=== PATIENT | female | born 1955 | race Caucasian/White ===

== ENCOUNTER 2016-07-23 23:38 | Emergency (ER) | payer BC, OTHER ==
--- NOTE | 2016-07-24 00:45 | CT REPORT ---
HISTORY: Fall to the posterior head. COMPARISON: None. TECHNIQUE: Axial non-contrast images obtained from skull vertex through foramen magnum. Dose reduction technique was utilized. FINDINGS: There is no atrophy. There is no hemorrhage. There is no hydrocephalus. There is a 1.6 cm extra-ax ial left frontal convexity partially calcified mass. Blackwell white differentiation adequate, there is n o infarction. No midline shift is identified. There is mild mucosal thickening of the ethmoid sinus with air-fluid level seen in the sphenoid sinus. IMPRESSION: 1. No acute intracranial abnormality. 2. 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 3. Air-fluid level in the sphenoid sinus, which may be secondary to acute sinusitis. Final Electronic Signature: This report was electronically signed by Bhargavi Lackey MD on 07/24/2016 12:42 AM. deborah /
--- NOTE | 2016-07-24 01:15 | ER PHYSICIAN DOCUMENTATION ---
Physician Documentation [facility] Name:Es Mahoney Age:61 yrs Sex:Female :1955 Arrival Date:07/23/2016 Time:23:38 Bed3 Private MD:Physician, No ED Nate Curry Disposition: 07/24/16 00:52 Discharged to Home/Self Care. Impression: Closed Head Injury w/o Cranial Wound, Unspec State LOC. - Condition is Good. - Discharge Instructions: Acute Brain Injuries - HEAD INJURY, No Wake-Up (Adult). - Medical Reconciliation form form. - Follow up: Emergency Department; When: As needed; Reason: Worsening of condition. - Problem is new. - Symptoms have improved. HPI: 07/24 00:48 This 61 yrs old Female presents to ER via Wheelchair with complaints of Head sc Injury-Adult. 00:48 The patient or guardian reports injury, pain. The complaints affect the left oriental orthodox. sc Context of injury: The problem was sustained at work, resulted from a fall. Onset: The symptom(s)/episode began/occurred 15 minute(s) ago. Associated signs and symptoms: Loss of consciousness: This patient did not experience any loss of consciousness. Pertinent positives: headache. Severity of symptoms: At their worst the symptoms were moderate, in the emergency department the symptoms are unchanged. Intracranial bleed risk factors: age over 60. Historical: - Allergies: No known drug Allergies; - Home Meds: 1. Proventil Inhl as needed - Tetanus: < 10 years. - Ebola Screening: : Patient negative for fever greater than or equal to 101.5 degrees Fahrenheit, and additional compatible Ebola Virus Disease symptoms. Patient denies exposure to infectious person. Patient denies travel to an Ebola-affected area in the 21 days before illness onset. No symptoms or risks identified at this time. . - Immunization history: Flu Vaccine < 1 year. - Social history: Smoking status: Patient uses tobacco products, current every day smoker. ROS: 00:49 Constitutional: Negative for fever, chills, and weight loss. sc Eyes: Negative for injury, pain, redness, and discharge. ENT: Negative for injury, pain, and discharge. Neck: Negative for injury, pain, and swelling. Cardiovascular: Negative for chest pain, palpitations, and edema. Respiratory: Negative for shortness of breath, cough, wheezing, and pleuritic chest pain. Back: Negative for injury and pain. 00:49 Skin: Negative for injury, rash, and discoloration. sc 00:49 Eyes: Negative for blurry vision. 00:49 ENT: Negative for injury or acute deformity, drainage from ear(s). 00:49 Neuro: Positive for headache. Exam: Constitutional: This is a well developed, well nourished patient who is awake, alert, and in no acute distress. Chest/axilla: Normal chest wall appearance and motion. Nontender with no deformity. No lesions are appreciated. Cardiovascular: Regular rate and rhythm with a normal S1 and S2. No gallops, murmurs, or rubs. Normal PMI, no JVD. No pulse deficits. Respiratory: Lungs have equal breath sounds bilaterally, clear to auscultation and percussion. No rales, rhonchi or wheezes noted. No increased work of breathing, no retractions or nasal flaring. Abdomen/GI: Soft, non-tender, with normal bowel sounds. No distension or tympany. No guarding or rebound. No evidence of tenderness throughout. Back: No spinal tenderness. No costovertebral tenderness. Full range of motion. 00:49 Skin: Warm, dry with normal turgor. Normal color with no rashes, no lesions, and no sc evidence of cellulitis. 00:49 Head/face: Exam is negative for glez signs, deformity, Noted is tenderness, Basilar skull fracture findings: the patient does not have obvious signs of a basilar skull fracture. 00:49 Eyes: Pupils: equal, round, and reactive to light and accomodation. 00:49 ENT: TM's: hemotympanum, is not appreciated. 00:49 Neck: C-spine: no acute changes. 00:52 Neuro: Orientation: is normal, Mentation: is normal. sc Vital Signs: 07/23 23:47 BP 147 / 89; Pulse 87; Resp 18; Temp 98.0; Pulse Ox 92% on R/A; Weight 72.57 kg (R); bw2 Height 5 ft. 5 in. (165.10 cm); Pain 6/10; 07/24 01:11 BP 136 / 66; Pulse 70; Resp 18; Pulse Ox 93% ; Pain 4/10; bw2 07/23 23:47 Body Mass Index 26.63 (72.57 kg, 165.10 cm) bw2 [place] Coma Score: 07/23 23:45 Eye Response: spontaneous(4). Verbal Response: oriented(5). Motor Response: obeys bw2 commands(6). Total: 15. 07/24 00:48 Eye Response: spontaneous(4). Verbal Response: oriented(5). Motor Response: obeys sc commands(6). Total: 15. 00:50 Eye Response: spontaneous(4). Verbal Response: oriented(5). Motor Response: obeys sc commands(6). Total: 15. Trauma Score (Adult): 07/23 23:48 Eye Response: spontaneous(1); Verbal Response: oriented(1); Motor Response: obeys bw2 commands(2); Systolic BP: > 89 mm Hg(4); Respiratory Rate: 10 to 29 per min(4); [place] Score: 15; Trauma Score: 12 MDM: 23:47 Patient medically screened. oh 07/24 00:50 Differential diagnosis: Intracranial bleed- Concussion cerebral contusion. Neurological sc re-evaluation: normal neurological exam including cranial nerves, orientation, mentation, motor and sensory exam, cerebellar testing, GCS normal, and normal gait. Data reviewed: vital signs, nurses notes, radiologic studies, CT scan, and as a result, I will discharge patient. Counseling: I had a detailed discussion with the patient and/or guardian regarding: the historical points, exam findings, and any diagnostic results supporting the discharge/admit diagnosis, radiology results, to return to the emergency department if symptoms worsen or persist or if there are any questions or concerns that arise at home. 07/24 00:46 Order name: CAT SCAN; HEAD W/O CON [id number]; Complete Time: 00:54 EDMS 07/24 00:53 Interpretation: Normal Except: meningioma, discussed with patient, aware and will sc confirm on follow up with pcp. Dispensed Medications: No medications were administered Signatures: Nate Jones MD MD [place] Zoila Gamahca [facility]
--- NOTE | 2016-07-24 01:15 | ER NURSING DOCUMENTATION ---
Nurse's Notes [facility] Name:Es Mahoney Age:61 yrs Sex:Female :1955 Arrival Date:07/23/2016 Time:23:38 Bed3 Private MD:Physician, No Diagnosis:Closed Head Injury w/o Cranial Wound, Unspec State LOC Presentation: 07/23 23:39 Acuity: ENMANUEL 3 bw2 23:45 Presenting complaint: Patient states: while walking at work she slipped on the wet bw2 floor and hit head on floor. pt denies LOC, pt denies being on blood thinners. pt complains of headache. Transition of care: patient was not received from another setting of care. Mechanism of Injury: The problem was sustained at work, resulted from a fall, slipped. 23:45 Method Of Arrival: Wheelchair bw2 Triage Assessment: 23:47 General: Appears in no apparent distress, well groomed, Behavior is appropriate for bw2 age. Pain: Complains of pain in head Quality of pain is described as throbbing, Pain began 30 min ago. Neuro: No deficits noted. Level of Consciousness is awake, alert, Reports headache in entire. Historical: - Allergies: No known drug Allergies; - Home Meds: 1. Proventil Inhl as needed - Tetanus: < 10 years. - Ebola Screening: : Patient negative for fever greater than or equal to 101.5 degrees Fahrenheit, and additional compatible Ebola Virus Disease symptoms. Patient denies exposure to infectious person. Patient denies travel to an Ebola-affected area in the 21 days before illness onset. No symptoms or risks identified at this time. . - Immunization history: Flu Vaccine < 1 year. - Social history: Smoking status: Patient uses tobacco products, current every day smoker. Screenin:48 Infectious Disease Risk None. Abuse screen: Denies threats or abuse. Nutritional bw2 screening: No deficits noted. Assessment: 23:48 See Triage Assessment done by same RN. bw2 Vital Signs: 23:47 BP 147 / 89; Pulse 87; Resp 18; Temp 98.0; Pulse Ox 92% on R/A; Weight 72.57 kg (R); bw2 Height 5 ft. 5 in. (165.10 cm); Pain 6/10; 07/24 01:11 BP 136 / 66; Pulse 70; Resp 18; Pulse Ox 93% ; Pain 4/10; bw2 07/23 23:47 Body Mass Index 26.63 (72.57 kg, 165.10 cm) bw2 [place] Coma Score: 07/23 23:45 Eye Response: spontaneous(4). Verbal Response: oriented(5). Motor Response: obeys bw2 commands(6). Total: 15. 18 00:48 Eye Response: spontaneous(4). Verbal Response: oriented(5). Motor Response: obeys sc commands(6). Total: 15. 00:50 Eye Response: spontaneous(4). Verbal Response: oriented(5). Motor Response: obeys sc commands(6). Total: 15. Trauma Score (Adult): 07/23 23:48 Eye Response: spontaneous(1); Verbal Response: oriented(1); Motor Response: obeys bw2 commands(2); Systolic BP: > 89 mm Hg(4); Respiratory Rate: 10 to 29 per min(4); [place] Score: 15; Trauma Score: 12 ED Course: 23:39 Patient arrived in ED. ma1 23:39 Physician, Aga is Private Physician. ma1 23:39 Laura Gama is Primary Nurse. bw2 23:39 Triage completed. 2 23:47 Nate Jones MD is Attending Physician. ga 23:48 Valuables Remains with patient Patient has correct armband on for positive bw2 identification. Bed in low position. Side rails up X2. 07/24 00:[address] pm1 00:[address] Patient [address] back from [address]. pm1 Administered Medications: No medications were administered Outcome: 00:52 Discharge ordered by . ga 01:11 Discharged to home ambulatory. bw2 01:11 Condition: good 01:11 Discharge Assessment: Patient awake, alert and oriented x 3. No cognitive and/or functional deficits noted. Patient verbalized understanding of disposition instructions. 01:11 Discharge instructions given to patient, Instructed on discharge instructions, follow up and referral plans. Demonstrated understanding of instructions. 01:14 Patient left the ED. 2 Signatures: Nate Jones MD MD ga Marge Bear pm1 Laura Gama bw2 Korin Murdock [facility]
== END 2016-07-24 01:15 | disposition home or self-care (01) ==
LOC: ER 23:38
DX: S06.890A Other specified intracranial injury without loss of consciousness, initial encounter (principal); W01.0XXA Fall on same level from slipping, tripping and stumbling without subsequent striking against object, initial encounter; Y92.59 Other trade areas as the place of occurrence of the external cause; Y93.01 Activity, walking, marching and hiking; Y99.0 Civilian activity done for income or pay
CPT/HCPCS: 70450; 99284